=== PATIENT | male | born 1960 | race African-American/Black ===

== ENCOUNTER → 2016-09-14 | Outpatient (CLI) | payer OTHER ==
[~2016-09-14] MED LIST: FERR325T58 PO; FLUT100D IH; GINK40CA PO; GINS100C PO; GLUC100018 PO; KRIL1CAP5 PO; LEVO75TA5 PO; MONT10TA9 PO; MULT-658 PO; NAPR500T PO; SILD50TA PO
--- NOTE | 2016-09-15 09:29 | KCIC ---
PROCEDURE MR of the right wrist HISTORY Right wrist pain anterior and posterior. History of carpal tunnel surgery. TECHNIQUE Routine multiplanar sequences are obtained. COMPARISON None FINDINGS No evidence of triangular fibrocartilage tear. Mild extensor carpi ulnaris tendinosis signal. No tear, fluid or subluxation. The other extensor compartments are intact. Flexor tendons are intact. The median nerve is mildly thickened and hyperintense at the level of the carpi. Minimal susceptibility type postsurgical artifact adjacent to the median nerve. The flexor retinaculum is poorly defined compatible with prior surgery. Mild heterogeneity and irregularity of the membranous component of the scapholunate ligament but no through and through tear. The anterior and posterior bands appear intact. Note there is mild dorsal tilt of the lunate bone. No evidence of lunotriquetral ligament tear. No bone lesion or acute fracture. Small distal radioulnar joint effusion. IMPRESSION 1. Mild hyperintense signal and thickening of the median nerve, could indicate residual or acute median neuritis, depending on clinical correlation. 2. Mild extensor carpi ulnaris tendinosis. 3. Small distal radioulnar joint effusion. Electronically signed by: Mert Massey MD (September 15, 2016 09:28:00)
== END | disposition home or self-care (01) ==
LOC: KCIC MRI 13:44
PROVIDERS: ATTEND Orthopaedic Surgery
DX: M25.531 Pain in right wrist (principal); M25.431 Effusion, right wrist
CPT/HCPCS: 73221

== ENCOUNTER → 2016-11-29 | Outpatient (CLI) | payer OTHER ==
[~2016-11-29] MED LIST changes: -GINS100C PO; +GINS100C3 PO
--- NOTE | 2016-11-29 10:14 | KCIC ---
MR of the right knee Indication: Osteoarthritis. Swelling. Lateral pain for about one month. Technique: The standard multiplanar sequences are obtained. Findings: Medial meniscus: No evidence of medial meniscal tear. Lateral meniscus: Mild signal in the posterior horn but no evidence of a tear. Anterior cruciate ligament: Intact Posterior cruciate ligament: Intact Medial collateral ligament: Intact. Iliotibial band: Intact. Posterolateral structures: Fibular collateral ligament, biceps tendon and popliteus tendon are intact. Extensor mechanism: Intact. Fluid: Small joint effusion. Articular cartilage -patellofemoral joint: Moderate chondromalacia, greatest at the lateral aspect of the joint. -medial compartment: No acute defect. -lateral compartment: No acute defect. Bones: No significant lesion or acute fracture. Soft tissue: Mild prepatellar subcutaneous edema or inflammation. Impression: 1. Moderate patellofemoral joint chondromalacia. 2. No meniscal tear or other internal derangement. Electronically signed by: Mert Massey MD (11/29/2016 10:11 AM) [id number]
== END | disposition home or self-care (01) ==
LOC: KCIC MRI 08:33
PROVIDERS: ATTEND Nurse Practitioner Family
DX: M17.11 Unilateral primary osteoarthritis, right knee (principal); M94.261 Chondromalacia, right knee
CPT/HCPCS: 73721